=== PATIENT | female | born 1995 | race Two or more races ===

== ENCOUNTER 2016-11-04 16:17 | Emergency (ER) | payer MEDICAID ==
--- NOTE | 2016-11-04 16:52 | ER Document Report ---
ED Medical Screen (RME) - General Stated Complaint: HEADACHE AND VOMITING Notes: patient is 21 year old female who is 32 weeks c/o fever, headache, vomiting, sore throat that started yesterday. 4/5 in severity denies contractions, decreased movement I have greeted and performed a rapid initial assessment of this patient. A comprehensive ED assessment and evaluation of the patient, analysis of test results and completion of the medical decision making process will be conducted by additional ED providers. TRAVEL OUTSIDE OF THE [place] IN LAST 30 DAYS: No - Related Data Allergies/Adverse Reactions: No Known Allergies Allergy (Verified 11/04/16 16:51) Past Medical History Past Surgical History: Reports: Hx Section
[2016-11-04 17:40] LABS: APPEARANCE,URINE CLOUDY; BILIRUBIN,URINE NEGATIVE (NEGATIVE); GLUCOSE, URINE NEGATIVE (NEGATIVE); KETONES,URINE NEGATIVE (NEGATIVE); LEUKOCYTE ESTERASE,URINE NEGATIVE (NEGATIVE); NITRITE,URINE NEGATIVE (NEGATIVE); PROTEIN,URINE NEGATIVE (NEGATIVE); URINE SPECIFIC GRAVITY 1.015; UROBILINOGEN,URINE NEGATIVE mg/dL (<2.0)
[2016-11-04 20:26] VITALS: BP 123/71
== END 2016-11-04 20:15 | disposition left against medical advice (07) ==
LOC: ER 16:17
DX: O26.893 Other specified pregnancy related conditions, third trimester (principal); R51 Headache; R50.9 Fever, unspecified; O21.2 Late vomiting of pregnancy; O99.513 Diseases of the respiratory system complicating pregnancy, third trimester; J02.9 Acute pharyngitis, unspecified; Z3A.32 32 weeks gestation of pregnancy; Z53.20 Procedure and treatment not carried out because of patient's decision for unspecified reasons
CPT/HCPCS: 81001; 87804; 87880; 99281

== ENCOUNTER 2016-11-04 21:52 | Emergency (ER) | payer MEDICAID ==
[2016-11-04] MEDS ORDERED: PENICILLIN G BENZATHINE 1.2 MILLION UNIT/2 ML DISP.SYRIN IM ONE (22:06)
[2016-11-04 22:09] VITALS: BP 123/64
--- NOTE | 2016-11-04 22:14 | ER Document Report ---
[id number] Information source: Patient TRAVEL OUTSIDE OF THE [place] IN LAST 30 DAYS: No - HPI Patient complains to provider of: Sore throat Onset: Other - Since Tuesday Onset: Gradual Quality of pain: Sharp Severity: Moderate Pain Level: 4 Associated symptoms: Fever - Sore throat, Other - Sore throat and vomiting Worsened by: Nothing Similar symptoms previously: Yes Recently seen / treated by doctor/dentist: No - General Chief Complaint: Sore Throat Stated Complaint: SORE THROAT Notes: 21-year-old female who is 32 weeks presents to ED for sore throat since Tuesday, fever yesterday and today. Vomiting yesterday none today. She was seen earlier in [facility] and went home and came back. The strep that they did earlier was positive. We will treat her. (SOCRATES RIVERA) - Related Data Allergies/Adverse Reactions: No Known Allergies Allergy (Verified 11/04/16 16:51) Past Medical History - General Information source: Patient - Social History Smoking Status: Never Smoker Cigarette use (# per day): No Chew tobacco use (# tins/day): No Smoking Education Provided: No Frequency of alcohol use: None Drug Abuse: None Lives with: Family Family History: Reviewed & Not Pertinent - Past Medical History Cardiac Medical History: Reports: None Pulmonary Medical History: Reports: None EENT Medical History: Reports: None Neurological Medical History: Reports: None Endocrine Medical History: Reports: None Renal/ Medical History: Reports: None Malignancy Medical History: Reports: None GI Medical History: Reports: None Musculoskeltal Medical History: Reports None Skin Medical History: Reports None Psychiatric Medical History: Reports: None Traumatic Medical History: Reports: None Infectious Medical History: Reports: None Past Surgical History: Reports: Hx Section Review of Systems - Review of Systems Constitutional: Fever EENT: Throat pain Cardiovascular: No symptoms reported Respiratory: No symptoms reported Gastrointestinal: Vomiting Genitourinary: No symptoms reported Female Genitourinary: No symptoms reported Musculoskeletal: No symptoms reported Skin: No symptoms reported Hematologic/Lymphatic: No symptoms reported Neurological/Psychological: Headaches -: Yes All other systems reviewed and negative Physical Exam - Vital signs Interpretation: Normal - General General appearance: Appears well, Alert - HEENT Head: Normocephalic, Atraumatic Eyes: Normal Pupils: PERRL Ears: Normal External canal: Normal Tympanic membrane: Normal Sinus: Normal Nasal: Swelling, Clear rhinorrhea Mouth/Lips: Normal Mucous membranes: Normal Pharynx: Erythema, Exudate, Tonsillar hypertrophy Neck: Anterior cervical chain - Respiratory Respiratory status: No respiratory distress Chest status: Nontender Breath sounds: Normal Chest palpation: Normal - Cardiovascular Rhythm: Regular Heart sounds: Normal auscultation Murmur: No - Abdominal Inspection: Normal Distension: No distension Bowel sounds: Normal Tenderness: Nontender Organomegaly: No organomegaly - Back Back: Normal, Nontender - Extremities General upper extremity: Normal inspection, Nontender, Normal color, Normal ROM , Normal temperature General lower extremity: Normal inspection, Nontender, Normal color, Normal ROM , Normal temperature, Normal weight bearing. No: Shy's sign - Neurological Neuro grossly intact: Yes Cognition: Normal Orientation: AAOx4 [place] Coma Scale Eye Opening: Spontaneous Ana Coma Scale Verbal: Oriented [place] Coma Scale Motor: Obeys Commands Ana Coma Scale Total: 15 Speech: Normal Motor strength normal: LUE, RUE, LLE, RLE Sensory: Normal - Psychological Associated symptoms: Normal affect, Normal mood - Skin Skin Temperature: Warm Skin Moisture: Dry Skin Color: Normal Course - Re-evaluation Re-evalutation: 11/04/16 22:17 Patient was treated with IM penicillin and discharged home [facility] . Patient instructed to return to the ED for any complications from her injection or any increase in symptoms. ( SOCRATES RIVERA) - Vital Signs Vital signs: Temp Pulse Resp BP Pulse Ox 98.1 F 109 H 20 123/64 98 11/04/16 22:01 11/04/16 22:01 11/04/16 22:01 11/04/16 22:01 11/04/16 22:01 (MONIKA VILLASENOR) Discharge - Discharge Clinical Impression: Strep pharyngitis Condition: Stable Disposition: HOME, SELF-CARE Additional Instructions: STREP THROAT: Your sore throat is due to the streptococcus germ (strep throat). Strep throat usually makes you feel quite ill with fever and aches, headache, swollen sore throat, and tender bumps under the angles of the jaw. Strep throat requires antibiotic treatment. Although the sore throat may go away by itself, complications such as rheumatic fever, kidney disease, or throat abscess can occur. We usually prescribe antibiotics by mouth. Be sure to take the medicine until it's gone. If you stop early, the strep may come back. If you are vomiting, are severely ill, or can't remember to take pills, we can give you an antibiotic shot. Take acetaminophen or ibuprofen for pain and fever. Sip frequent clear liquids, or use popsicles or ice chips. Anesthetic sprays or lozenges may help. Make sure the air in the room is not too dry. Avoid using decongestants or antihistamines. Call the doctor if there is no improvement in three days, or if you have difficulty breathing, increasing throat pain, high fever, rash, or frequent vomiting. Penicillins The antibiotic you have received is a member of the penicillin family. This is a very useful class of antibiotics. The particular type of antibiotic chosen for you was determined by the nature of your problem. Penicillins are absorbed best when taken on an empty stomach, and should be taken either a half hour before or two hours after a meal. Some newer medicines of the penicillin class are better taken with food -- if this is the case, the pharmacist will label the medicine to alert you. Penicillins usually have no side effects. However, allergy to penicillins is common. If you have had an allergic reaction to any drug of the penicillin family, you should never take any other penicillin. Notify your doctor at once if you develop hives, itching, swelling, faintness, or shortness of breath. Less serious side effects can include nausea or diarrhea. FOLLOW-UP CARE: If you have been referred to a physician for follow-up care, call the physician s office for an appointment as you were instructed or within the next two days. If you experience worsening or a significant change in your symptoms, notify the physician immediately or return to the Emergency Department at any time for re-evaluation. Referrals: [facility] [Provider Group] - Follow up as needed
== END 2016-11-04 22:20 | disposition home or self-care (01) ==
LOC: ER 21:52
DX: O99.513 Diseases of the respiratory system complicating pregnancy, third trimester (principal); J02.0 Streptococcal pharyngitis; J34.89 Other specified disorders of nose and nasal sinuses; O21.2 Late vomiting of pregnancy; O26.893 Other specified pregnancy related conditions, third trimester; Z3A.32 32 weeks gestation of pregnancy; R50.9 Fever, unspecified
CPT/HCPCS: 99282; 96372; J0561

== ENCOUNTER 2016-12-14 05:05 | Inpatient (IN) | payer MEDICAID ==
[2016-12-09 12:04] LABS: ABSOLUTE MONOCYTES (AUTO) 0.7 10^3/uL (0.1-1.4); ABSOLUTE NEUT (AUTO) 7.2 10^3/uL (1.7-8.2); BASOPHILS % (AUTO) 0.4 % (0-2); EOSINOPHILS % (AUTO) 0.3 % (0-6); HEMATOCRIT 29.9 % (36.0-47.0); HEMOGLOBIN 9.6 g/dL (12.0-15.5); HGB HCT DIFFERENCE -1.1; LYMPHOCYTES % (AUTO) 19.7 % (13-45); MEAN CORPUSCULAR HEMOGLOBIN 24.1 pg (27.0-33.4); MEAN CORPUSCULAR VOLUME 75 fl (80-97); MONOCYTES % (AUTO) 6.9 % (3-13); RED BLOOD COUNT 3.96 10^6/uL (3.72-5.28); RED CELL DISTRIBUTION WIDTH 18.5 % (11.5-14.0); SEGMENTED NEUTROPHILS % (AUTO) 72.7 % (42-78)
[2016-12-09 12:25] LABS: APPEARANCE,URINE SLIGHTLY-CLOUDY; BILIRUBIN,URINE NEGATIVE (NEGATIVE); GLUCOSE, URINE NEGATIVE (NEGATIVE); KETONES,URINE NEGATIVE (NEGATIVE); LEUKOCYTE ESTERASE,URINE NEGATIVE (NEGATIVE); NITRITE,URINE NEGATIVE (NEGATIVE); PROTEIN,URINE NEGATIVE (NEGATIVE); URINE SPECIFIC GRAVITY 1.011; UROBILINOGEN,URINE NEGATIVE mg/dL (<2.0)
[2016-12-09 12:32] LABS: URINE BARBITURATES SCREEN NEGATIVE; URINE METHADONE SCREEN NEGATIVE; URINE OPIATES LOW NEGATIVE; URINE PHENCYCLIDINE SCREEN NEGATIVE
[~2016-12-14 05:05] MED LIST: CEFAZOLIN 1 GM/D5W RTU 1 GM/50 ML RTUPB IV PRN; LACTATED RINGERS 1000 ML IV PRN; LIDOCAINE 0.5% INJ-PF (5 MG/ML) 50 ML SDV SUBCUT PRN; RINGERS SOLUTION,LACTATED 1,500 ML IV PRN
[2016-12-14] MEDS ORDERED: ACETAMINOPHEN 100 ML IV ONE (07:10)
[2016-12-14] MEDS ORDERED: OXYTOCIN/NORMAL SALINE 20 UNIT/1,000 ML RTUINJ ONE (07:10)
[2016-12-14] MEDS ORDERED: MIDAZOLAM 2 MG/2 ML INJ ONE (07:10)
[2016-12-14] MEDS ORDERED: METHYLERGONOVINE MALEATE INJ/PF 0.2 MG/1 ML AMPULE ONE (07:10)
[2016-12-14] MEDS ORDERED: OXYTOCIN 10 UNIT/ML VIAL ONE (07:10)
[2016-12-14] MEDS ORDERED: EPHEDRINE SULFATE INJ 50 MG/1 ML AMPULE ONE (07:10)
[2016-12-14] MEDS ORDERED: MORPHINE SULFATE 10 MG/ML INJ IV PRN (08:06)
[2016-12-14] MEDS ORDERED: OXYCODONE-ACETAMINOPHEN 5-325 MG TABLET PO PRN ×3 (08:06→10:57)
[2016-12-14] MEDS ORDERED: MEPERIDINE HCL/PF INJ 25 MG/1 ML DISP.SYRIN IV PRN (08:06)
[2016-12-14] MEDS ORDERED: ONDANSETRON HCL INJ/PF 4 MG/2 ML SDV IV PRN (08:06)
[2016-12-14] MEDS ORDERED: DIPHENHYDRAMINE HCL 50 MG/ML VIAL IV PRN (08:06)
[2016-12-14] MEDS ORDERED: FENTANYL CITRATE INJ/PF 100 MCG/2 ML AMPUL IV PRN ×3 (08:06)
[2016-12-14] MEDS ORDERED: PROMETHAZINE HCL INJ 25 MG/1 ML VIAL IV PRN ×3 (08:06→10:57)
[2016-12-14] MEDS ORDERED: MORPHINE SULFATE 10 MG/ML INJ ONE (09:47)
[2016-12-14] MEDS ORDERED: HYDROMORPHONE HCL INJ/PF 2 MG/ML AMPULE IV PRN (10:57)
[2016-12-14] MEDS ORDERED: SIMETHICONE 80 MG TAB.CHEW PO PRN (10:57)
[2016-12-14] MEDS ORDERED: ACETAMINOPHEN 325 MG TABLET PO PRN (10:57)
[2016-12-14] MEDS ORDERED: MEASLES,MUMPS&RUBELLA VACC/PF 0.5 ML VIAL SUBCUT PRN (10:57)
[2016-12-14] MEDS ORDERED: DIPH/PERTUSS(ACELL)/TETANUS VAC/PF 0.5 ML SYR (>=10YO) IM PRN (10:57)
[2016-12-14] MEDS ORDERED: OXYTOCIN/NORMAL SALINE 1,000 ML IV PRN (10:57)
[2016-12-14] MEDS ORDERED: ACETAMINOPHEN 100 ML IV PRN (10:57)
[2016-12-14] MEDS ORDERED: RINGERS SOLUTION,LACTATED 1,000 ML IV PRN (10:57)
[2016-12-14] MEDS ORDERED: DOCUSATE SODIUM 100 MG CAPSULE PO ONE (12:00)
[2016-12-14] MEDS ORDERED: PRENATAL VITAMIN W-O CA NO5/FE FUMARATE/FA CAPSULE PO ONE (12:00)
[2016-12-14] MEDS ORDERED: KETOROLAC TROMETHAMINE INJ/PF 30 MG/1 ML SDV IV SCH (14:00)
[2016-12-14] MEDS: DOCUSATE SODIUM 100 MG CAPSULE PO SCH (17:18)
[2016-12-14] MEDS: OXYCODONE-ACETAMINOPHEN 5-325 MG TABLET PO PRN ×2 (18:44→23:29)
--- NOTE | 2016-12-14 19:01 | L&D Flow Sheet ---
LD Flowsheet Datetime Report Generated by CPN: 12/14/2016 19:00 Datetime: 12/14/2016 10:58 NBP Sys/Yanni/Mean (mmHg): 120 (Lavonne Nuñez, RN) : 57 (Lavonne Nuñez, RN) : 80 (Lavonne Nuñez, RN) Pulse: 68 (Lavonne Nuñez, RN) Respirations: 18 (Lavonne Nuñez, RN) SpO2 (%): 98 (Lavonne Nuñez, RN) Datetime: 12/14/2016 10:45 NBP Sys/Yanni/Mean (mmHg): 116 (Lavonne Nuñez, RN) : 74 (Lavonne Nuñez, RN) : 88 (Lavonne Nuñez, RN) Pulse: 71 (Lavonne Nuñez, RN) Respirations: 18 (Lavonne Nuñez, RN) SpO2 (%): 98 (Lavonne Nuñez, RN) Pain Scale: 2 (Lavonne Nuñez RN) Pain Presence: Intermittent (Lavonne Nuñez RN) Pain Type: Dull (Lavonne Nuñez RN) Pain Location: Abdomen (Lavonne Nuñez RN) Pain Goal: 1 (Lavonne Nuñez RN) Pain Relief Measures: Comfort Measures (Lavonne Nuñez, CAMILA) Datetime: 12/14/2016 10:30 Stage of : Recovery (Lavonne Nuñez RN) NBP Sys/Yanni/Mean (mmHg): 124 (Lavonne Nuñez, RN) : 66 (Lavonne Nuñez, RN) : 83 (Lavonne Nuñez, RN) Pulse: 74 (Lavonne Nuñez, RN) Respirations: 18 (Lavonne Nuñez, RN) SpO2 (%): 98 (Lavonne Nuñez, RN) Datetime: 12/14/2016 10:15 NBP Sys/Yanni/Mean (mmHg): 114 (Lavonne Nuñez, RN) : 56 (Lavonne Nuñez, RN) : 81 (Lavonne Nuñez, RN) Pulse: 70 (Lavonne Nuñez, RN) Respirations: 18 (Lavonne Nuñez, RN) SpO2 (%): 98 (Lavonne Nuñez, RN) Datetime: 12/14/2016 10:00 NBP Sys/Yanni/Mean (mmHg): 102 (Lavonne Nuñez, RN) : 67 (Lavonne Nuñez, RN) : 77 (Lavonne Nuñez, RN) Pulse: 78 (Lavonne Nuñez, RN) Respirations: 18 (Lavonne Nuñez, RN) SpO2 (%): 99 (Lavonne Nuñez, RN) Datetime: 12/14/2016 09:45 NBP Sys/Yanni/Mean (mmHg): 120 (Lavonne Nuñez, RN) : 73 (Lavonne Nuñez, RN) : 101 (Lavonne Nuñez, RN) Pulse: 73 (Lavonne Nuñez, RN) Respirations: 18 (Lavonne Nuñez, RN) SpO2 (%): 99 (Lavonne Nuñez, RN) Datetime: 12/14/2016 09:43 Pain Scale: 2 (Lavonne Nuñez, RN) Pain Presence: Constant (Lavonne Nuñez, RN) Pain Type: Dull (Lavonne Nuñez, RN) Pain Location: Abdomen (Lavonne Nueñz, RN) Pain Goal: 1 (Lavonne Nuñez, RN) Pain Relief Measures: Pain Medication Given (Lavonne Nuñez, RN) Datetime: 12/14/2016 09:30 NBP Sys/Yanni/Mean (mmHg): 124 (Lavonne Nuñez, RN) : 71 (Lavonne Nuñez, RN) : 88 (Lavonne Nuñez, RN) Pulse: 78 (Lavonne Nuñez, RN) Respirations: 18 (Lavonne Nuñez, RN) SpO2 (%): 100 (Lavonne Nuñez, RN) Datetime: 12/14/2016 09:15 NBP Sys/Yanni/Mean (mmHg): 113 (Lavonne Nuñez RN) : 68 (Lavonne Nuñez RN) : 85 (Lavonne Nuñez RN) Pulse: 77 (Lavonne Nuñez RN) Respirations: 16 (Lavonne Nuñez RN) SpO2 (%): 100 (Lavonne Nuñez RN) Datetime: 12/14/2016 09:04 Stage of : Recovery (Lavonne Nuñez RN) NBP Sys/Yanni/Mean (mmHg): 109 (Lavonne Nuñez RN) : 67 (Lavonne Nuñez RN) : 80 (Lavonne Nuñez RN) Pulse: 73 (Lavonne Nuñez RN) Respirations: 20 (Lavonne Nuñez RN) SpO2 (%): 100 (Lavonne Nuñez RN) Temperature (F): 98.0 (Lavonne Nuñez RN) Temperature (C): 36.7 (QS system process) Temperature Route: Oral (Lavonne Nuñez RN)
[2016-12-14] MEDS: IBUPROFEN 800 MG TABLET PO SCH (23:28)
--- NOTE | 2016-12-15 06:01 | L&D General Admission ---
General Admit Datetime Report Generated by CPN: 12/15/2016 06:00 INFORMATION Patient Age: 21 (09/27/2016 16:43:QS system process) EDC: 12/22/2016 00:00 (12/07/2016 11:14:Lavonne Nuñez RN) : 2 (12/07/2016 11:14:PAYAM Kay) Para: 1 (12/07/2016 11:14:PAYAM Kay) Term: 1 (12/07/2016 11:14:PAYAM Kay) : 0 (12/07/2016 11:14:PAYAM Kay) Spontaneous Abortions: 0 (12/07/2016 11:14:PAYAM Kay) Induced Abortions: 0 (12/07/2016 11:14:PAYAM Kay) Livin (12/07/2016 11:14:PAYAM Kay) Cesareans: 1 (12/07/2016 11:14:PAYAM Kay) VBACs: 0 (12/07/2016 11:14:PAYAM Kay) Ectopic: 0 (12/07/2016 11:14:PAYAM Kay) Multiple Births: 0 (12/07/2016 11:14:PAYAM Kay) Baby, Number in Womb: 1 (Annotations: Data stored by [facility] on behalf of user) (12/07/2016 11:14:PAYAM Kay) CARE Height (in): 61 (12/14/2016 11:55:QS system process) ALLERGIES Medication Allergies: No Known Allergies (12/09/2016) (12/09/2016 10:48:QS system process) DEMOGRAPHICS Address: [facility] [place] [address] (12/14/2016 11:54:QS system process) Zipcode: [address] (09/27/2016 16:43:QS system process) Home (11/09/2016 17:57:QS system process) SSN: [id number] (09/27/2016 16:43:QS system process) Next of Kin Name: PEDRO LUIS FISCHER (09/27/2016 16:43:QS system process) Next of Kin (09/27/2016 16:43:QS system process) Next of Kin Relationship: OR (09/27/2016 16:43:QS system process) Date of : 1995 (09/27/2016 16:43:QS system process) Marital Status: (09/27/2016 16:43:QS system process) Sex: Female (09/27/2016 16:43:QS system process) Race: Other (09/27/2016 16:43:QS system process) Ethnicity: or (09/27/2016 16:43:QS system process) Denominational: None (09/27/2016 16:43:QS system process) [facility]umboater: [facility] (12/07/2016 11:14:Angelique Garza RN) Feeding Preference: Breast (12/07/2016 11:14:Angelique Garza RN) Benefit of Breast Feed Discussed: Yes (12/07/2016 11:14:Angelique Garza RN) LABS Hemoglobin: 9.6 L (12/09/2016 11:38:QS system process) Hematocrit: 29.9 L (12/09/2016 11:38:QS system process) MCV: 75 L (12/09/2016 11:38:QS system process)
[2016-12-15] MEDS: IBUPROFEN 800 MG TABLET PO SCH ×4 (06:06→23:52)
[2016-12-15 07:51] LABS: HEMOGLOBIN 8.8 g/dL (12.0-15.5); HGB HCT DIFFERENCE -0.6; MEAN CORPUSCULAR HEMOGLOBIN 24.3 pg (27.0-33.4); MEAN CORPUSCULAR HGB CONC 32.5 g/dL (32.0-36.0); MEAN CORPUSCULAR VOLUME 75 fl (80-97); RED BLOOD COUNT 3.62 10^6/uL (3.72-5.28); RED CELL DISTRIBUTION WIDTH 19.2 % (11.5-14.0); WHITE BLOOD COUNT 10.1 10^3/uL (4.0-10.5)
[2016-12-15] MEDS: DOCUSATE SODIUM 100 MG CAPSULE PO SCH ×2 (10:21→17:38)
[2016-12-15] MEDS: PRENATAL VITAMIN W-O CA NO5/FE FUMARATE/FA CAPSULE PO SCH (10:21)
[2016-12-15] MEDS ORDERED: IBUPROFEN 800 MG TABLET PO SCH (12:00)
[2016-12-15] MEDS: OXYCODONE-ACETAMINOPHEN 5-325 MG TABLET PO PRN ×2 (15:18→23:54)
--- NOTE | 2016-12-15 15:50 | PDOC PROGRESS REPORT ---
Subjective-OB Subjective: Post Delivery Day: 21 year old. Denies any needs at this time well incision dry and intact abdomen distended no flatus no bowel movement encouraged pt to ambulate and hold off on narcotics until flatus ok to continue with motrin pt verbalizes understanding explained in irish with spouse present Physical Exam (OB) Vital Signs: Temp Pulse Resp BP Pulse Ox 98.1 F 84 16 125/81 99 12/15/16 13:26 12/15/16 13:26 12/15/16 13:26 12/15/16 13:26 12/15/16 13:26 Intake & Output 12/14/16 12/15/16 12/16/16 06:59 06:59 06:59 Intake Total 1150 Output Total 3075 Balance -1925 Weight 108.862 kg - Dressing Removed: Yes Incision: Well Approximated Closure Type: Sutures - Lochia Lochia Amount: Scant < 10 ml Lochia Color: Rubra/Red - Abdomen Description: Soft, Round Hernia Present: No Fundal Description: Firm, Midline Fundal Height: u/u - u/2 Objective-Diagnostic Laboratory: 12/15/16 07:37 12/15/16 07:37 WBC 10.1 RBC 3.62 L Hgb 8.8 L Hct 27.0 L MCV 75 L MCH 24.3 L MCHC 32.5 RDW 19.2 H Plt Count 229
[2016-12-15] MEDS ORDERED: MAGNESIUM HYDROXIDE SUSP 30 ML UDCUP PO PRN (18:04)
[2016-12-16] MEDS: IBUPROFEN 800 MG TABLET PO SCH ×2 (06:15→11:08)
[2016-12-16] MEDS: DOCUSATE SODIUM 100 MG CAPSULE PO SCH (09:11)
[2016-12-16] MEDS: PRENATAL VITAMIN W-O CA NO5/FE FUMARATE/FA CAPSULE PO SCH (09:11)
[2016-12-16 11:46] VITALS: BP 125/75
--- NOTE | 2016-12-16 12:07 | PDOC PROGRESS REPORT ---
Subjective-OB Subjective: Post Delivery Day: 21 year old. Denies any needs at this time. Ready to go home. Physical Exam (OB) Vital Signs: Temp Pulse Resp BP Pulse Ox 98.0 F 72 20 125/75 100 12/16/16 11:24 12/16/16 11:24 12/16/16 11:24 12/16/16 11:24 12/16/16 11:24 Intake & Output 12/15/16 12/16/16 12/17/16 06:59 06:59 06:59 Intake Total 1150 Output Total 3075 Balance -1925 - PIH/Pre-Eclampsia Clonus: Negative - Dressing Removed: Yes Incision: Open, Well Approximated Closure Type: Surgical Glue - Lochia Lochia Amount: Scant < 10 ml Lochia Color: Rubra/Red - Abdomen Description: Soft, Round Hernia Present: No Bowel Sounds: Normoactive Flatus Presence: Present Stool: No Fundal Description: Firm, Midline Fundal Height: u/u - u/2 Objective-Diagnostic Laboratory: 12/15/16 07:37
--- NOTE | 2016-12-16 12:31 | PDOC DISCHARGE SUMMARY ---
Final Diagnosis Discharge Date: 12/16/16 - Final Diagnosis (1) Delivery by elective caesarean section Is this a current diagnosis for this admission?: Yes (2) GDM (gestational diabetes mellitus) Is this a current diagnosis for this admission?: Yes (3) History of asthma Is this a current diagnosis for this admission?: Yes (4) Is this a current diagnosis for this admission?: Yes (5) UTI (urinary tract infection) during Is this a current diagnosis for this admission?: Yes Discharge Data - Discharge Medication Home Medications: Docusate Sodium [Colace 100 mg Capsule] 100 mg PO BID #30 capsule 12/16/16 Ferrous Sulfate 325 mg PO BID #60 tablet. 12/16/16 Ibuprofen [Motrin 800 mg Tablet] 800 mg PO Q6 #30 tablet 12/16/16 Oxycodone HCl/Acetaminophen [Percocet 5-325 mg Tablet] 1 tab PO Q4HP PRN #30 tablet 12/16/16 Gestational Age: 38.6 wks Reason(s) for Admission: Ceasarean Section-Repeat Procedures: Ultrasound Intrapartum Procedure(s): : Low Cervical, Transverse - Data Baby 1 Female at 1 minute: 7 at 5 minutes: 9 Weight: 4.08 kg Home with Mother: Yes Complications: No - Diagnosis Test Laboratory: Temp Pulse Resp BP Pulse Ox 98.0 F 72 20 125/75 100 12/16/16 11:24 12/16/16 11:24 12/16/16 11:24 12/16/16 11:24 12/16/16 11:24 12/09/16 12/09/16 12/15/16 11:30 11:38 07:37 RBC 3.96 3.62 L Hgb 9.6 L 8.8 L Hct 29.9 L 27.0 L Urine Opiates Screen NEGATIVE - Discharge information/Instructions Discharge Activity: Activity As Tolerated, Balance Activity w/Rest, No Driving, No Lifting Over 10 Pounds, No Lifting/Push/Pulling, Pelvic Rest, Slowly Increase Activity, No tub bath Discharge Diet: Regular Disposition: HOME, SELF-CARE Follow up with: [facility] in: 1, Weeks
--- NOTE | 2017-01-18 11:49 | Operative Report ---
Operative Report DATE OF SURGERY: 12/14/16 PREOPERATIVE DIAGNOSIS: 39week , Type 2 diabetes Mellitus, Previous section POSTOPERATIVE DIAGNOSIS: same, delivered OPERATION: Repeat Low Transverse Section SURGEON: SAVANNAH RUBIN ANESTHESIA: Spinal TISSUE REMOVED OR ALTERED: placenta COMPLICATIONS: none ESTIMATED BLOOD LOSS: 600cc INTRAOPERATIVE FINDINGS: viable female weight 9lb0oz, Apgars 7/9. intact placenta 3vc. normal uterus ovaries and tubes PROCEDURE: After appropriate consents had been obtained, the patient was taken to the operating room where regional anesthesia was placed without difficulty. The patient was prepped and draped in the normal sterile fashion in the dorsal supine position with a leftward tilt. Time out procedure was performed. Anesthesia was determined to be adequate and a pfannenstiel incision was made through the prior scar. The fascia was nicked in the midline then extended bilaterally with Weston scissors. The fascia was elevated and then the rectus muscles dissected off sharply. The rectus muscles were then in the midline and the peritonuem identified. The peritoneum was entered sharply and extended with good visualization of the bladder. Bladder blade was inserted and the bladder flap carefully dissected off the lower uterine segment. A transverse incision was made with the scalpel then extended bilaterally in an upward outward motion across the lower uterine segment. Amniotomy revealed clear fluid. The vertex was grasped and elevated easily through the incision followed by the remainder of the infant. The cord was doubly clamped and ligated. The infant was handed off the operative field to the waiting pediatric team. The placenta was then extracted manually intact. The uterus was exteriorized and cleansed of membranous tissue with a sponge on the blending operator's hand. The uterine incision was then repaired using 0 vicryl in a running locked fashion. A second layer of the same suture was used to imbricate for hemastasis. The uterus was then returned to the abdomen and gutters were cleared of clots and debris. The fascial incision was closed with 0 vicryl in a running fashion to the midline. The subcutaneous layer was closed with 0 plain in a running stitch. the skin was closed with 4-0 monocryl in subcuticular running stitch. Sponge, lap and needle counts were correct. The patient was transferred to recovery in stable condition.
== END 2016-12-16 13:21 | disposition home or self-care (01) | DRG 765 ==
LOC: 2S 05:05
PROVIDERS: ADMIT Obstetrics & Gynecology; ATTEND Obstetrics & Gynecology
PROC: 4A1HXCZ Monitoring of Products of Conception, Cardiac Rate, External Approach (ICD-10-PCS; 2016-12-14)
PROC: 10D00Z1 Extraction of Products of Conception, Low, Open Approach (ICD-10-PCS; principal; 2016-12-14 07:45)
DX: O34.211 Maternal care for low transverse scar from previous cesarean delivery (principal); O75.3 Other infection during labor; N39.0 Urinary tract infection, site not specified; O24.429 Gestational diabetes mellitus in childbirth, unspecified control; O99.52 Diseases of the respiratory system complicating childbirth; J45.909 Unspecified asthma, uncomplicated; Z83.3 Family history of diabetes mellitus; Z3A.38 38 weeks gestation of pregnancy; Z37.0 Single live birth
CPT/HCPCS: 1961; 36415; 59025; 80307; 81001; 82962; 85025; 85027; 86850; 86900; 86901; 94799; J0131; J0690; J1885; J2210; J2250; J2270; J2590; J3490; J7120